=== PATIENT | female | born 1985 | race Caucasian/White ===

== ENCOUNTER 2020-06-14 20:27 | Emergency (ER) | payer OTHER ==
[~2020-06-14 20:27] MED LIST: FERROUS SULFAT325 M2 PO
[2020-06-14] MEDS ORDERED: IBUPROFEN800 MG PO (22:49)
== END 2020-06-14 23:04 | disposition home or self-care (01) ==
LOC: ER1 20:27
DX: S00.83XA Contusion of other part of head, initial encounter (principal); G35 Multiple sclerosis; F17.290 Nicotine dependence, other tobacco product, uncomplicated; Z88.2 Allergy status to sulfonamides; Z91.040 Latex allergy status; Y04.2XXA Assault by strike against or bumped into by another person, initial encounter
CPT/HCPCS: 70450; 70486; 72125; 73090; 81001; 84703; 99284

== ENCOUNTER 2020-10-23 19:38 | Emergency (ER) | payer OTHER ==
[~2020-10-23 19:38] MED LIST changes: +IBUPROFEN800 MG PO
[2020-10-23 20:38] LABS: HEMOGLOBIN 10.9 gm/dl (12.3-15.3); RED BLOOD COUNT 4.01 M/UL (4.00-5.10); WHITE BLOOD COUNT 8.3 K/UL (4.5-11.0)
== END 2020-10-24 01:51 | disposition home or self-care (01) ==
LOC: ER1 19:38
PROVIDERS: Student in an Organized Health Care Education/Training Program
DX: R41.0 Disorientation, unspecified (principal); Z88.1 Allergy status to other antibiotic agents
CPT/HCPCS: 70450; 71045; 80053; 80307; 84439; 84443; 84703; 85025; 93005; 99285; G0480